=== PATIENT | male | born 1945 | race Two or more races ===

== ENCOUNTER 2025-04-14 16:56 | Emergency (ER) | payer OTHER ==
[~2025-04-14] VITALS: Ht 175.3 cm; Wt 77.0 kg
[2025-04-14 17:01] VITALS: BP 130/90; PULSE 100; RESP 16; TEMP 98.9; O2SAT 99
== END 2025-04-14 18:25 | disposition left against medical advice (07) ==
LOC: ER 16:56
DX: S00.81XA Abrasion of other part of head, initial encounter (principal); X58.XXXA Exposure to other specified factors, initial encounter; Y93.89 Activity, other specified; Y92.89 Other specified places as the place of occurrence of the external cause; Y99.8 Other external cause status
CPT/HCPCS: 99283